=== PATIENT | male | born 1995 | race Hispanic/Latino ===

== ENCOUNTER 2019-10-10 21:18 | Emergency (ER) | payer OTHER ==
[2019-10-10] MEDS ORDERED: TETRACAINE HCL 0.5% 4 ML OPHTH SOLN ONE (21:46)
[2019-10-10] MEDS ORDERED: NA BORATE/BORIC AC/H2O/NACL 120 ML OPHTH IRRIG SOLN ONE (21:46)
[2019-10-10] MEDS ORDERED: FLUORESCEIN SODIUM 1 STRIP STRIP ONE (21:46)
== END 2019-10-10 22:23 | disposition home or self-care (01) ==
LOC: EDH 21:18
DX: S00.11XA Contusion of right eyelid and periocular area, initial encounter (principal); Z72.0 Tobacco use; X58.XXXA Exposure to other specified factors, initial encounter; Y93.89 Activity, other specified; Y92.89 Other specified places as the place of occurrence of the external cause; Y99.8 Other external cause status

== ENCOUNTER 2020-06-04 12:37 | Emergency (ER) | payer OTHER ==
[2020-06-04] MEDS ORDERED: TETANUS/DIPHTHERIA TOXOID [ADULT] 0.5 ML VIAL IM ONE (12:50)
[2020-06-04] MEDS ORDERED: AMOXICILLIN/POTASSIUM CLAV 875-125 TABLET PO ONE (12:50)
== END 2020-06-04 13:41 | disposition home or self-care (01) ==
LOC: EDH 12:37
DX: S40.872A Other superficial bite of left upper arm, initial encounter (principal); S40.022A Contusion of left upper arm, initial encounter; Y04.1XXA Assault by human bite, initial encounter; Y93.89 Activity, other specified; Y92.89 Other specified places as the place of occurrence of the external cause; Y99.8 Other external cause status
CPT/HCPCS: 90471; 90714

== ENCOUNTER 2020-09-03 10:54 | Emergency (ER) | payer OTHER ==
[2020-09-03] MEDS ORDERED: METHYLPREDNISOLONE SOD SUCC 40MG/ML 1ML ONE (12:54)
== END 2020-09-03 13:29 | disposition home or self-care (01) ==
LOC: EDH 10:54
DX: S39.012A Strain of muscle, fascia and tendon of lower back, initial encounter (principal); E66.2 Morbid (severe) obesity with alveolar hypoventilation; Z68.42 Body mass index [BMI] 45.0-49.9, adult; W01.198A Fall on same level from slipping, tripping and stumbling with subsequent striking against other object, initial encounter; Y93.89 Activity, other specified; Y92.89 Other specified places as the place of occurrence of the external cause; Y99.8 Other external cause status
CPT/HCPCS: 72100; 96372; 99283; J2920

== ENCOUNTER 2020-10-02 09:53 | Emergency (ER) | payer OTHER | END 2020-10-02 11:18 | disposition left against medical advice (07) | LOC: EDH 09:53 | DX: M79.602 Pain in left arm (principal); Z53.21 Procedure and treatment not carried out due to patient leaving prior to being seen by health care provider ==

== ENCOUNTER 2022-02-19 17:23 | Emergency (ER) | payer OTHER ==
[~2022-02-19] VITALS: Ht 188 cm; Wt 208.7 kg
[2022-02-19] MEDS ORDERED: CEFTRIAXONE 1G VIAL IM ONE (17:30)
[2022-02-19] MEDS ORDERED: TETANUS/DIPHTHERIA TOXOID [ADULT] 0.5 ML VIAL IM ONE (17:30)
[2022-02-19] MEDS ORDERED: LIDOCAINE HCL-MPF 1% 2ML VIAL ONE (18:01)
[2022-02-19] MEDS ORDERED: AMOX1TAB16 PO (18:19)
[2022-02-19] MEDS ORDERED: BACI30OI10 TP (18:19)
[2022-02-19 18:37] VITALS: BP 137/90
== END 2022-02-19 18:50 | disposition home or self-care (01) ==
LOC: EDH 17:23
DX: S51.852A Open bite of left forearm, initial encounter (principal); Y04.1XXA Assault by human bite, initial encounter; Y93.89 Activity, other specified; Y92.89 Other specified places as the place of occurrence of the external cause; Y99.8 Other external cause status
CPT/HCPCS: 73090; 90471; 90714; 96372; 99284; J0696; J3490